=== PATIENT | female | born 2000 | race Caucasian/White ===

== ENCOUNTER 2021-08-03 01:10 | Day surgery (SDC) | payer OTHER, SELFPAY ==
[2021-07-30 15:18] VITALS: BMI 25.4
--- NOTE | 2021-07-30 15:23 | PC.NURSE ---
Report to the Outpatient Waiting Room, entrance under the green pavilion located off [facility], at time ___6:30AM____ on date ___8-09-26____. OR Time: ___8:30AM . - You and your visitor will be asked a series of questions to screen for COVID 19 for your protection. - Only one visitor is allowed at this time. - The patient visitor is requested to leave or wait in car when not with patient. - A mask is required within the hospital. Patients may have clear liquids (water, carbonated beverages, clear teas, apple juice) until 3 hours prior to surgery with a maximum of 20 ounces. NO FLUIDS AFTER 0530 DAY OF SURGERY - No food from midnight until time of surgery - Infants may have breast milk until 4 hours before surgery, infant formula 6 hours prior to surgery. - Children will be allowed to drink immediately following surgery. If applicable, please bring a bottle or sippy cup to assist with drinking. Juice, water, soda, and popsicles are readily available. For infants on formula, please bring formula the day of surgery. Pacifiers are allowed. Take the following medications with a SIP of water the morning of surgery: Medications to discontinue per physician Date to take last dose Please no make-up, nail czech, hairspray, perfume, deodorant, or body powder the day of surgery. No jewelry (including any body piercings) or valuables the day of surgery, leave them at home. Please take a shower or bath the night before, or the morning of, surgery with an antibacterial soap. Wear comfortable, loose fitting clothing. Children are encouraged to wear pajamas. - Jewelry must be removed prior to entering the operating room. Rings and piercings that are not removed may be cut off. - The hospital will not accept responsibility for valuables. - Please leave all valuables, including medications, at home the day of surgery. If you are going home after surgery, a licensed otr van cdl truck driver must drive you home. - NO public transportation without another adult. - We recommend that an adult stay with you for 24 hours following discharge. - We also recommend that you do not drive, make important decision, drink alcoholic beverages, or take any drugs that were not prescribed by your health care provider for at least 24 hours after your discharge time. Follow any additional instructions given to you from your surgeon. If you or anyone in your household have experienced Covid symptoms in the past week, please notify your surgeon or the nurse liaison at the phone number below for possible testing. Telephone instructions given to ___ANIA GROVES and asked if any additional questions and then verbalized understanding. Patient advised to call surgeon office or pre surgery nurse liaison [phone] if any additional questions.
--- NOTE | 2021-08-02 12:53 | PM.IMHP ---
H&P: HPI History of Present Illness Date/Time: 08/02/21 12:53 Chief Complaint: Recurrent tonsillitis, recurrent pharyngitis, chronic tonsillitis Narrative: patient presents for planned surgical procedure no change in symptoms no change in history Review of Systems Constitutional: Constitutional: Denies fatigue, Denies fever(s) and Denies lethargy Eyes: Eyes: Denies blurry vision and Denies change in vision ENT: Reports as per HPI Cardiovascular: Cardiovascular: Denies chest pain Respiratory: Respiratory: Denies cough Endocrine: Endocrine: Denies fatigue Hematologic/Lymphatic: Hematologic/Lymphatic: Denies easy bleeding, Denies easy bruising and Denies lymphadenopathy Allergic/Immunologic: Allergic/Immunologic: Denies seasonal rhinorrhea [facility] Social History Social History Smoking status: Never smoker Second hand tobacco smoke exposure: Yes Alcohol intake: never Substance use: never Living arrangements: alone Spiritual care concerns: No Meds Home Medications and Allergies Home Medications Medication Instructions Recorded Confirmed Type No Home Medications 07/12/21 07/30/21 History Allergies Allergy/AdvReac Type Severity Reaction Status Date / Time No Known Allergies Allergy Verified 07/30/21 15:17 Exam Const: General: cooperative, healthy appearing, comfortable, well developed and alert HENMT: Head: normal to inspection, normocephalic and atraumatic Ears: hearing grossly normal bilaterally, external ears normal, TM's normal bilaterally and EAC's normal General nose exam: Normal external nose present, Normal nares present, No nasal polyps present, Normal nasal mucous membranes and turbinates present and Normal septum present Face and sinus: normal facial exam Mouth: Yes Normal oral and palatal mucosa present, Yes lip normal, Yes tongue normal, Yes oropharynx normal and Yes moist mucous membranes Teeth and gingiva: dentition normal and gingiva normal Throat: posterior oropharynx normal, tonisls abnormal ( erythematous edematous 2 to 3+ infected appearing) and uvula midline Eyes: General: appearance normal, both eyes and all related structures Periorbital: periorbital findings normal Eyelids: eyelids normal Conjunctivae: conjunctivae normal Sclera: sclerae normal Neck: Neck: normal visual inspection, full ROM and no lymphadenopathy Thyroid: thyroid normal Lymphatic: no lymphadenopathy noted Resp: Effort & Inspection: normal respiratory effort and able to speak in complete sentences Cardio: Jugular venous distension: no JVD Neuro: Cranial nerves: Yes CN's II-XII intact bilaterally Assessment and Plan Assessment and plan (1) Pharyngitis: Code(s): J02.9 - Acute pharyngitis, unspecified Status: Acute Assessment and Plan: The plan is for the OR for tonsillectomy. Risks were discussed including pain of any structure above the clavicles, tongue pain tooth pain ear pain jaw pain ear numbness tongue numbness tooth numbness halitosis postoperative bleeding risk of 5%. . Damage to any structure during the induction and/or maintenance of anesthesia. (2) Recurrent tonsillitis: Code(s): J03.91 - Acute recurrent tonsillitis, unspecified Status: Acute (3) Chronic tonsillitis: Code(s): J35.01 - Chronic tonsillitis Status: Acute
--- NOTE | 2021-08-02 13:11 | WPDANESEPPF ---
Anes - Initial Pre Proc Eval Procedure: Operation Date: 08/03/21 07:30 Proposed Procedures p Tonsillectomy - Giovani Irwin MD Date/Time: 08/02/21 13:11 Surgeon: Giovani Irwin MD Pre Op Diagnosis: Chronic Tonsillitis Patient Data Age: 21 Gender: F Height: 1.52 m Weight: 59 kg Allergies Allergy/AdvReac Type Severity Reaction Status Date / Time No Known Allergies Allergy Verified 07/30/21 15:17 Home Medications Medication Instructions Recorded Confirmed Type No Home Medications 07/12/21 07/30/21 History Results Review: All pre-operative results and documents have been reviewed as part of the pre-operative evaluation. [facility] Past Medical History Medical History (Updated 08/02/21 @ 13:14 by Chris Foster MD) Overweight (BMI 25.0-29.9) Social History Social History Smoking status: Never smoker Second hand tobacco smoke exposure: Yes Alcohol intake: never Substance use: never Living arrangements: alone Spiritual care concerns: No Anes - Eval Final PreProcedure Day of Procedure 08/02/21 13:11 Results Review: All pre-operative results and documents have been reviewed as part of the pre-operative evaluation. Informed Consent: The patient's anesthetic plan and its attendant risks and benefits were discussed with the patient/family/POA. Questions were solicited and answers provided to the satisfaction of the patient/family/POA.
[2021-08-03] VITALS (8 sets, daily range): BP systolic 103–114; BP diastolic 61–81; PULSE 63–85; RESP 12–20; TEMP 36.3–37.3; O2SAT 96–100
[2021-08-03] MEDS: ACETAMINOPHEN 500 MG TABLET 1000 MG PO (06:50)
[2021-08-03] MEDS: LACTATED RINGERS 1,000 ML 30 ML IV CONT ×2 (06:55→08:19)
--- NOTE | 2021-08-03 07:02 | P.PNAN_ITS ---
Anes - Initial Pre Proc Eval Procedure: Operation Date: 08/03/21 07:30 Proposed Procedures p Tonsillectomy - Giovani Irwin MD Date/Time: 08/03/21 07:02 Surgeon: Giovani Irwin MD Pre Op Diagnosis: Chronic Tonsillitis Patient Data Age: 21 Gender: F Height: 1.52 m Weight: 59 kg Allergies Allergy/AdvReac Type Severity Reaction Status Date / Time No Known Allergies Allergy Verified 08/03/21 06:16 Home Medications Medication Instructions Recorded Confirmed Type No Home Medications 07/12/21 08/03/21 History Patient hx anesthesia problems: none Family hx anesthesia problems: other (lung problems) Results Review: All pre-operative results and documents have been reviewed as part of the pre-operative evaluation. [facility] Past Medical History Medical History Overweight (BMI 25.0-29.9) Social History Social History Smoking status: Never smoker Second hand tobacco smoke exposure: Yes Alcohol intake: never Substance use: never Living arrangements: alone Spiritual care concerns: No Anes - Eval Final PreProcedure Day of Procedure 08/03/21 07:02 Patient weight: overweight Heart: regular rate and rhythm Lungs: clear to auscultation Airway: Mallampati scale class II Neurological: alert and oriented Last oral intake: >/= 8 hours ASA classification: II Emergent: no Anesthetic plan: proceed Anesthesia type and monitoring: general ETT and standard monitoring Results Review: All pre-operative results and documents have been reviewed as part of the pre-operative evaluation. Informed Consent: The patient's anesthetic plan and its attendant risks and benefits were discussed with the patient/family/POA. Questions were solicited and answers provided to the satisfaction of the patient/family/POA.
--- NOTE | 2021-08-03 07:12 | WPDHPUPDATE1 ---
History and Physical Update Update Date/Time: 08/03/21 07:12 History and Physical has been reviewed, including an updated exam of the patient. There are NO changes in the patient's condition. Risks, benefits, and alternatives have been discussed and questions answered. Patient agrees to proceed with procedure.
--- NOTE | 2021-08-03 08:19 | W.PM.PROC2 ---
Procedure Note - Detailed Date of Procedure 08/03/21 Pre-op Diagnosis Chronic Tonsillitis, recurrent tonsillitis Post-op Diagnosis Same Procedure Performed Tonsillectomy Surgeon Giovani Irwin MD Anesthesia General Indications See above Findings Really cryptic 2+ tonsils erythematous stones present, minimal bleeding no bleeding in PACU Description of Procedure Patient identified, consent verified. Patient brought operating room. Time-out performed. General anesthesia induced. Endotracheal tube secured an airway. Patient prepped and draped perform mentioned procedure. Second time-out performed. McIvor mouth gag inserted in oral cavity open reveal tonsils described above. This was a bilateral procedure. They were grasped with a curved Allis forceps and dissected in the extracapsular plane using Bovie electrocautery at a setting of 10. Any bleeding vessels were cauterized with suction Bovie electrocautery setting as well. After the procedure the McIvor mouth gag was lowered and reopened to reveal no further bleeding. The McIvor mouth gag was then removed. Care the patient was turned over to Anesthesiology. I performed all dictated portions of the procedure. Total blood loss about 2 cc. There were no immediate complications. Estimated Blood Loss 2 Drains No Packing No Pathology Yes Complications No immediate complications Condition Stable Disposition PACU
[2021-08-03] MEDS: fentaNYL CITRATE INJ (*CRX) 100 MCG/2 ML VIAL 25 MCG IV PUSH ×2 (08:23→08:49)
[2021-08-03] MEDS: oxyCODONE (*CRX) 5 MG/5 ML ORAL SOLN IR PO (10:05)
== END 2021-08-03 10:05 | disposition home or self-care (01) ==
PROVIDERS: Visit Provider Otolaryngology
PROC: (CPT 42826; principal; 2021-08-03 07:30)
DX: J35.01 Chronic tonsillitis (principal); J03.91 Acute recurrent tonsillitis, unspecified; J35.8 Other chronic diseases of tonsils and adenoids
CPT/HCPCS: 42826; 88300; 88304; A9270; J0330; J1100; J2250; J2370; J2405; J2704; J3010; J7120

== ENCOUNTER 2021-08-08 22:43 | Emergency (ER) | payer OTHER, SELFPAY ==
[2021-08-08 22:52] VITALS: BP 134/78; PULSE 113; RESP 20; TEMP 37.2; O2SAT 100
[2021-08-08] MEDS: BENZOCAINE/TETRACAINE SPRAY (*SP) 56 ML AEROSOL 1 SPRAY (23:01)
--- NOTE | 2021-08-08 23:04 | P.CONS_ITS ---
Assessment and Plan Assessment and plan (1) Post-tonsillectomy hemorrhage: Code(s): J95.830 - Postprocedural hemorrhage of a respiratory system organ or structure following a respiratory system procedure Status: Acute Plan Post tonsillectomy hemmorrhage: Plan, limit ibuprofen. Call with any questions/concerns especially with further episodes of bleeding. HPI Data of Consult Date/Time: 08/08/21 23:04 Primary Care Provider: PHYSICIAN NOT ON STAFF Consult Narrative Narrative: Leeann William is a 21 year old female s/p T and A by myself 5 days ago. Reports coughing up small clots. ENT consulted for further evaluation and treatment. [facility] Past Medical History Medical History Overweight (BMI 25.0-29.9) Social History Social History Smoking status: Never smoker Second hand tobacco smoke exposure: Yes Alcohol intake: never Substance use: never Spiritual care concerns: No Meds Home Medications and Allergies Home Medications Medication Instructions Recorded Confirmed Type oxycodone 5 mg/5 mL oral solution 5 mg (5 mL) PO Q12H PRN pain #100 08/03/21 Rx mL prednisone 5 mg/5 mL oral solution 5 mg (5 mL) PO DAILY 7 days #35 mL 08/06/21 Rx Allergies Allergy/AdvReac Type Severity Reaction Status Date / Time No Known Allergies Allergy Verified 08/03/21 06:16 Vital Signs Vital Signs - 24 hr 08/08/21 22:52 Temperature 37.2 C Pulse Rate 113 H Respiratory Rate 20 Blood Pressure 134/78 Pulse Oximetry 100 Oxygen Delivery Room Air Exam Narrative: Right clot present. Cetacaine applied. Clot suctioned. No active oozing present. No high pressure or high volume bleeding. Multiple rounds of cautery with silver nitrate performed. on small red regions. Bleeding source not identified but any red areas cauterized.
--- NOTE | 2021-08-08 23:05 | ED.GENADULT ---
HPI - General Adult General Chief complaint: Unspecified Stated complaint: Post Op Tonsil Bleeding Time Seen by Provider: 08/08/21 22:50 Source: patient Mode of arrival: ambulatory Limitations: no limitations History of Present Illness HPI narrative: This is a 21 year old female that presents to the ER for bleeding status post tonsillectomy. Patient had tonsillectomy [address] Irwin. Reports she woke up coughing tonight. She noted that she tasted some blood. She then coughed up a little bit of blood which prompted her to be seen tonight. Denies fevers. Related Data Allergies Allergy/AdvReac Type Severity Reaction Status Date / Time No Known Allergies Allergy Verified 08/03/21 06:16 Review of Systems Review of Systems: CONSTITUTIONAL: Denies fever ENT: Reports sore throat All systems reviewed & are unremarkable except as noted in HPI and below PMFSH Past Medical History Medical History Overweight (BMI 25.0-29.9) Social History Social History Smoking status: Never smoker Second hand tobacco smoke exposure: Yes Alcohol intake: never Substance use: never Spiritual care concerns: No Exam Narrative: GENERAL: Well-appearing, well-nourished, and in no acute distress. HEAD: Normocephalic, atraumatic. EYES: EOMI. ENT: Mucous membranes moist. Right posterior oropharynx with mild oozing of blood from tonsillectomy site CHEST: No respiratory distress HEART: Regular rate EXTREMITIES: Normal range of motion. No edema. SKIN: Warm, dry, no rash. NEURO: No focal deficits. Alert and oriented x3. PSYCH: Normal mood and affect Course Vital Signs Vital signs: Vital Signs Temperature 98.9 F 08/08/21 22:52 Pulse Rate 113 H 08/08/21 22:52 Respiratory Rate 20 08/08/21 22:52 Blood Pressure 134/78 08/08/21 22:52 Pulse Oximetry 100 08/08/21 22:52 Oxygen Delivery Room Air 08/08/21 22:52 Temperature 98.9 F 08/08/21 22:52 Pulse Rate 113 H 08/08/21 22:52 Respiratory Rate 20 08/08/21 22:52 Blood Pressure 134/78 08/08/21 22:52 Pulse Oximetry 100 08/08/21 22:52 Oxygen Delivery Room Air 08/08/21 22:52 Medical Decision Making MDM Narrative Medical decision making narrative: Patient presents to the emergency department for bleeding status post tonsillectomy 5 days ago. Her vitals are stable. She is afebrile and nontoxic-appearing. Was evaluated by ENT in the ED and site was cauterized with silver nitrate. Patient will follow up with ENT as needed. She was given warnings to return to the ER Vital Signs Vital Signs: Vital Signs Temperature 98.9 F 08/08/21 22:52 Pulse Rate 113 H 08/08/21 22:52 Respiratory Rate 20 08/08/21 22:52 Blood Pressure 134/78 08/08/21 22:52 Pulse Oximetry 100 08/08/21 22:52 Oxygen Delivery Room Air 08/08/21 22:52 Temperature 98.9 F 08/08/21 22:52 Pulse Rate 113 H 08/08/21 22:52 Respiratory Rate 20 08/08/21 22:52 Blood Pressure 134/78 08/08/21 22:52 Pulse Oximetry 100 08/08/21 22:52 Oxygen Delivery Room Air 08/08/21 22:52 Critical Care Time Critical Care Time Critical Care Time: No Discharge Plan Discharge Clinical Impression: Post-tonsillectomy hemorrhage Patient Disposition: Home, Self-Care Condition: Stable Instructions: Tonsillectomy (DC) Additional Instructions: Return to the ER if you experience fever >101, recurrent bleeding, or any other symptoms that are concerning to you Rest. Remain well hydrated. Over the counter pain medication as needed (try to limit Ibuprofen if possible). Prescribed pain medication as needed Follow up with ENT as needed Prescriptions: No Action oxycodone 5 mg/5 mL solution 5 mg PO Q12H PRN (Reason: pain) Qty: 100 0RF prednisone 5 mg/5 mL solution 5 mg PO DAILY 7 Days Qty: 35 0RF Rx Instructions: Take for
[2021-08-08 23:38] VITALS: BP 123/83; PULSE 82; RESP 18; O2SAT 98
== END 2021-08-08 23:38 | disposition home or self-care (01) ==
PROVIDERS: Emergency Provider Emergency Medicine
DX: J95.830 Postprocedural hemorrhage of a respiratory system organ or structure following a respiratory system procedure (principal)
CPT/HCPCS: 99283; A9270

== ENCOUNTER 2023-12-02 16:05 | Outpatient (CLI) | payer OTHER, SELFPAY ==
[2023-12-02 16:55] LABS: Beta HCG Quantitative 50.46 mIU/ML
== END 2023-12-02 16:06 | disposition home or self-care (01) ==
LOC: ANHLAB 16:09
PROVIDERS: Visit Provider Advanced Practice Midwife
DX: O20.0 Threatened abortion (principal); Z3A.00 Weeks of gestation of pregnancy not specified
CPT/HCPCS: 36415; 84702; 86900; 86901

== ENCOUNTER 2023-12-04 12:55 | Outpatient (CLI) | payer OTHER, SELFPAY ==
[2023-12-04 16:00] LABS: Beta HCG Quantitative 16.25 mIU/ML
== END 2023-12-04 12:56 | disposition home or self-care (01) ==
PROVIDERS: Visit Provider Advanced Practice Midwife
DX: O20.0 Threatened abortion (principal); Z3A.00 Weeks of gestation of pregnancy not specified
CPT/HCPCS: 36415; 84702